=== PATIENT | female | born 1975 | race Two or more races ===

== ENCOUNTER → 2016-09-23 06:10 | Emergency (ER) | payer OTHER ==
--- NOTE | ~2016-09-23 | EKG ---
PATIENT: AMBIKA MENDOZA UNIT #: [id number] Ventricular Rate: 77 BPM Atrial Rate: 77 BPM P-R Interval: 166 ms QRS Duration: 86 ms Q-T Interval: 374 ms QTC Calculation(Bezet): 423 ms P Pease: 59 degrees Calculated R Pease: 43 degrees Calculated T Pease: 51 degrees Diagnosis Line: Normal sinus rhythm Diagnosis Line: Normal ECG Diagnosis Line: No previous ECGs available Diagnosis Line: Confirmed by BREONNA HOPE MD ([id number]) on 09/23/2016 Diagnosis Line: 10:39:27 PM INTERPRETING MD: HERMINIA CARSON
--- NOTE | ~2016-09-23 | CT71 ---
[facility] A Service of [facility] RADIOLOGY TEXT RESULTS PATIENT: AMBIKA MEDNOZA LOCATION: [place] : [birth year] UNIT #: [id number] AGE: [address]: Jerri Connors APRN SEX: F ORDER DR: [id number] [facility]. [place], [place] [address] [id number] E MR#: [id number] #: [id number] NAME: AMBIKA MENDOZA : 1975 SEX: F STUDY DATE/TIME: 09/23/2016 5:18 UNIT: [place] ROOM: STUDY DESCRIPTION: CT Head Wo Contrast Attending Physician: Jerri Connors A.P.R.N. Ordering Physician: Jerri Connors A.P.R.N. Primary Care Physician: Primary Care Physician No MEDICAL IMAGING REPORT This report is preliminary unless electronic signature is present EXAM CT head, noncontrast, 09/23/2016 HISTORY 41-year-old female in the ED complaining of 2-day history of headache. TECHNIQUE CT examination of the head was performed without IV contrast. This CT examination was performed with one or more of the following radiation dose reduction techniques: automatic exposure control, adjustment of mA and/or kV according to patient size, and iterative reconstruction. FINDINGS No acute intracranial abnormality is demonstrated. No evidence of hemorrhage, mass, mass effect, cerebral edema, hydrocephalus or additional abnormality. IMPRESSION Negative head CT examination. Dictated by... Rayray Bright M.D. THIS IS AN ELECTRONICALLY VERIFIED REPORT Rayray Bright M.D. at 09/23/2016 9:43 PM RAY/chon TD: 09/23/2016 06:32 JOB #: [id number] MEDICAL IMAGING REPORT [facility] A Service [facility] RADIOLOGY TEXT RESULTS PATIENT: AMBIKA MENDOZA LOCATION: [place] : 71 UNIT #: [id number] AGE: [address]: Jerri Connors APRN SEX: F ORDER DR: Page 1 of 1 COPY
[2016-09-23 05:17] LABS: URINE SOURCE CLEAN CATCH
[2016-09-23 05:29] LABS: BASOPHIL# 0.1 X10e3 (0-0.3); BASOPHIL% 0.9 % (0-2.5); EOSINOPHIL# 0.2 X10e3 (0-0.7); EOSINOPHIL% 1.6 % (0.0-7.0); HEMATOCRIT 29.1 % (35.0-45.0); HEMOGLOBIN 8.7 gm/dL (12.0-16.0); LYMPHOCYTE# 2.1 X10e3 (1.0-3.5); LYMPHOCYTE% 21.9 % (17.0-45.0); MEAN CELL VOLUME 69.8 FL (83-96); MEAN CORPUSCULAR HEMOGLOBIN 20.9 PG (28-34); MEAN CORPUSCULAR HGB CONC 29.9 g/dL (30-36); MEAN PLATELET VOLUME 8.6 FL (6.5-11.5); MONOCYTE# 0.4 X10e3 (0-1.0); MONOCYTE% 4.2 % (3.0-12.0); NEUTROPHIL# 6.7 X10e3 (1.5-7.1); NEUTROPHIL% 71.4 % (40-75); PLATELET COUNT 322 X10e3 (140-420); RED BLOOD COUNT 4.17 X10e (3.90-5.30); RED CELL DISTRIBUTION WIDTH 19.6 % (11.0-15.5); WHITE BLOOD COUNT 9.5 X10e3 (4.0-10.5)
[2016-09-23 05:31] LABS: DIFF IND NO
[2016-09-23 05:34] LABS: URINE BILIRUBIN NEG (NEG); URINE BLOOD NEG (NEG); URINE COLOR YELLOW; URINE GLUCOSE >1000 MG/DL (NEG); URINE KETONE NEG (NEG); URINE LEUKOCYTE ESTERASE NEG (NEG); URINE NITRATE NEG (NEG); URINE PROTEIN NEG (NEG); URINE SPECIFIC GRAVITY 1.033 (1.003-1.035)
[2016-09-23 05:35] LABS: CULTURE INDICATED? NO; URINE APPEARANCE CLEAR
[2016-09-23 05:49] LABS: BUN/CREATININE RATIO 38.33; CALCIUM SERUM 9.1 mg/dL (8.4-10.2); CREATININE SERUM 0.6 mg/dL (0.6-1.4); GLOM FILT RATE Estimated 111.6 mL/min (>60); POTASSIUM 3.8 mmol/L (3.5-5.1)
== END | disposition home or self-care (01) ==
LOC: CED 06:10
PROVIDERS: Nurse Practitioner
DX: J02.0 Streptococcal pharyngitis (principal); E11.8 Type 2 diabetes mellitus with unspecified complications
CPT/HCPCS: 36415; 70450; 80048; 81003; 82947; 84703; 85025; 87880; 93005; 96361; 96374; 96375; 99284; J1200; J1885; J2765